=== PATIENT | male | born 1985 | race Caucasian/White ===

== ENCOUNTER 2016-10-05 07:46 | Day surgery (SDC) | payer MEDICARE, OTHER ==
[~2016-10-05] VITALS: Ht 185.4 cm; Wt 68.8 kg
[2016-10-05] MEDS ORDERED: LIDOCAINE 4% SOLUTION 50 ML BTL ONE ×2 (08:32→08:51)
[2016-10-05] MEDS ORDERED: DOXYCYCLINE (08:35)
[2016-10-05] MEDS ORDERED: FOLIC ACID (08:35)
[2016-10-05] MEDS ORDERED: NEURONTIN (08:35)
[2016-10-05] MEDS ORDERED: PROZAC (08:35)
[2016-10-05 08:37] VITALS: Ht 185.4 cm; Wt 68.8 kg
[2016-10-05 08:44] VITALS: BP 105/65; PULSE 63; RESP 18
[2016-10-05] MEDS ORDERED: MIDAZOLAM 1 MG/ML 2 ML INJ ONE ×2 (09:40)
[2016-10-05] MEDS ORDERED: FENTAnyl 50 MCG/ML VIAL ONE (09:40)
--- NOTE | 2016-10-05 10:26 | GILP ---
DATE OF PROCEDURE: 10/05/2016 PROCEDURE: Esophagogastroduodenoscopy. SURGEON: Lars Chang MD PREOPERATIVE DIAGNOSIS: The patient presenting with history of chronic abdominal pain unresponsive to routine symptomatic treatment. Rule out peptic ulcer disease, gastritis, esophagitis. POSTOPERATIVE DIAGNOSES: 1. Mild reflux esophagitis. 2. Mild diffuse gastritis. No ulcer, no neoplasm noted. DESCRIPTION OF PROCEDURE: After the informed written consent was obtained, the patient was asked to lie on the left lateral side, 3 mg Versed and 75 mcg of fentanyl were given as intravenous anesthes ia. When the patient became somnolent, the Olympus video upper endoscope was introduced into the orophar ynx, then into the esophagus. Just above the GE junction, a few areas of erythema was noted. Also including the GE junction, there is evidence of inflamed mucosa. Biopsies were obtained to rule out eosinophilic esophagitis and reflux esophagitis. Scope at this time was advanced into the stomach. Entire stomach showed patchy areas of erythema with friability; however, no ulcer, no neoplasm not ed. Fundus of the stomach appeared normal. Mucosa of the duodenum appeared normal. Endoscope at t his time was withdrawn and on the way out, no additional abnormalities detected and the procedure wa s terminated. PLAN: Recommend Dexilant 60 mg a day for 8 weeks. Dictated By: LARS CALI/SARAH Conf#: [id number] DID#: [id number] CC: LARS CHANG MD; HEAVEN SALAMANCA;*EndCC*
== END 2016-10-05 18:45 | disposition home or self-care (01) ==
LOC: GIL 07:46
PROVIDERS: ATTEND Internal Medicine Gastroenterology
DX: K21.0 Gastro-esophageal reflux disease with esophagitis (principal); K29.60 Other gastritis without bleeding
CPT/HCPCS: 43239; 88305; 88312; J2250; J3010